=== PATIENT | female | born 1950 | race Caucasian/White ===

== ENCOUNTER 2021-02-13 21:14 | Emergency (ER) | payer MEDICARE, SELFPAY | END 2021-02-13 22:45 | disposition home or self-care (01) | LOC: CSHERS 21:14 | DX: S80.02XA Contusion of left knee, initial encounter (principal); S00.31XA Abrasion of nose, initial encounter; I10 Essential (primary) hypertension; E78.00 Pure hypercholesterolemia, unspecified; Z79.899 Other long term (current) drug therapy; W18.30XA Fall on same level, unspecified, initial encounter | CPT/HCPCS: 70450; 70486; 72125 ==